=== PATIENT | male | born 1975 | race Caucasian/White ===

== ENCOUNTER 2019-09-10 16:04 | Emergency (ER) | payer MEDICAID ==
[~2019-09-10] VITALS: Ht 182.9 cm; Wt 83.5 kg
[2019-09-10 16:15] VITALS: BP 136/95
== END 2019-09-10 17:39 | disposition home or self-care (01) ==
LOC: ED 17:33
DX: J45.30 Mild persistent asthma, uncomplicated (principal); Z76.0 Encounter for issue of repeat prescription
CPT/HCPCS: 99283

== ENCOUNTER 2019-09-13 14:39 | Emergency (ER) | payer MEDICAID ==
[~2019-09-13] VITALS: Ht 182.9 cm; Wt 83.0 kg
[2019-09-13] MEDS ORDERED: ALBUTEROL/IPRATROPIUM 2.5MG/0.5MG, 3 ML NPPB ONE (15:00)
[2019-09-13] MEDS ORDERED: ALBUTEROL/IPRATROPIUM 2.5MG/0.5MG, 3 ML ONE (15:06)
[2019-09-13 15:37] VITALS: BP 127/75
== END 2019-09-13 15:39 | disposition home or self-care (01) ==
LOC: ED 15:04
DX: J45.31 Mild persistent asthma with (acute) exacerbation (principal); F17.200 Nicotine dependence, unspecified, uncomplicated
CPT/HCPCS: 93005; 94640; 99283; J7512; J7620